=== PATIENT | female | born 1945 | race Caucasian/White ===

== ENCOUNTER 2017-10-10 06:39 | Day surgery (SDC) | payer OTHER ==
[2017-10-09 14:19] VITALS: BMI 42.0
[~2017-10-10 06:39] MED LIST: TOBRAMYCIN/DEXAMETHASONE OPHTH. OINTMENT 1 TUBE TP ONE
[2017-10-10] MEDS ORDERED: MOXIFLOXACIN HCL 0.5% OPHTHALMIC 3 ML BOTTLE ONE (06:52)
[2017-10-10] MEDS ORDERED: TROPICAMIDE 1% OPHTH SOLN 15 ML BOTTLE ONE (06:52)
[2017-10-10] MEDS ORDERED: CYCLOPENTOLATE HCL 1% OPHTH SOLN 2 ML BOTTLE ONE (06:52)
[2017-10-10] MEDS ORDERED: PHENYLEPHRINE 2.5% OPHTH SOLN 15 ML BOTTLE ONE (06:52)
[2017-10-10 07:05] VITALS: PULSE 64; TEMP 97.3
[2017-10-10] MEDS: CYCLOPENTOLATE HCL 1% OPHTH SOLN 2 ML BOTTLE OP SCH ×3 (07:05→07:15)
[2017-10-10] MEDS: MOXIFLOXACIN HCL 0.5% OPHTHALMIC 3 ML BOTTLE OP SCH ×3 (07:05→07:15)
[2017-10-10] MEDS: PHENYLEPHRINE 2.5% OPHTH SOLN 15 ML BOTTLE OP SCH ×3 (07:05→07:15)
[2017-10-10] MEDS: TROPICAMIDE 1% OPHTH SOLN 15 ML BOTTLE OP SCH ×3 (07:05→07:15)
[2017-10-10] MEDS ORDERED: BUPIVACAINE HCL/PF 0.75% 10 ML VIAL ONE (07:51)
[2017-10-10] MEDS ORDERED: LIDOCAINE HCL/PF 2% SDV 5ML VIAL ONE ×2 (07:51→09:12)
[2017-10-10] MEDS ORDERED: EPINEPHrine/PF 1 MG/1 ML (1:1,000) AMPULE ONE (07:51)
[2017-10-10] MEDS ORDERED: TOBRAMYCIN/DEXAMETHASONE OPHTH. OINTMENT 1 TUBE ONE (07:51)
[2017-10-10] MEDS ORDERED: LIDOCAINE HCL/PF 1% SDV 5ML VIAL ONE (07:52)
[2017-10-10] MEDS ORDERED: BSS (NA/CA/MG/K) BALANCED SALT SOLUTION OPHTH SOLN 15 ML BOTTLE ONE (07:52)
[2017-10-10] MEDS ORDERED: TETRACAINE 0.5% OPHTH SOLN 2 ML BOTTLE ONE (07:52)
[2017-10-10] MEDS ORDERED: POVIDONE-IODINE 5% OPHTHALMIC PREP 30 ML SOLUTION ONE (07:53)
--- NOTE | 2017-10-10 07:55 | HP ---
History & Physical Update - History History: No Change - Physical Physical: No Change - Assessment Assessment: No Change (see clearance in chart) - Plan Plan: No Change
[2017-10-10] MEDS ORDERED: MIDAZOLAM HCL 2 MG/2 ML SINGLE DOSE VIAL ONE (08:09)
[2017-10-10] MEDS ORDERED: PROPOFOL 20 ML ONE (08:14)
[2017-10-10] MEDS ORDERED: SUCCINYLCHOLINE CHLORIDE 200 MG/10 ML VIAL ONE (08:15)
[2017-10-10] MEDS ORDERED: TETRACAINE 0.5% OPHTH SOLN 2 ML BOTTLE OD ONE (08:16)
[2017-10-10] MEDS ORDERED: BUPIVACAINE HCL/PF 0.75% 10 ML VIAL RB ONE (08:17)
[2017-10-10] MEDS ORDERED: LIDOCAINE HCL/PF 2% SDV 5ML VIAL INF ONE (08:17)
[2017-10-10] MEDS ORDERED: POVIDONE-IODINE 5% OPHTHALMIC PREP 30 ML SOLUTION OD ONE (08:19)
[2017-10-10] MEDS ORDERED: EPINEPHrine/PF 1 MG/1 ML (1:1,000) AMPULE SQ ONE ×2 (08:20→08:35)
[2017-10-10] MEDS ORDERED: BSS (NA/CA/MG/K) BALANCED SALT SOLUTION OPHTH SOLN 15 ML BOTTLE OD ONE (08:27)
[2017-10-10] MEDS ORDERED: CHONDROITIN SU A/HYALUR SOD 1 KIT IO ONE (08:27)
[2017-10-10] MEDS ORDERED: LIDOCAINE HCL 1% PRESERVATIVE FREE - 30ML VIAL IO ONE (08:27)
[2017-10-10] MEDS ORDERED: ACETYLCHOLINE 1:100 INTRA-OCUL 20 MG/2 ML KIT IO ONE (08:47)
[2017-10-10] MEDS ORDERED: TOBRAMYCIN/DEXAMETHASONE OPHTH. OINTMENT 1 TUBE TP ONE (08:58)
[2017-10-10 10:31] VITALS: BP 144/65
--- NOTE | 2017-10-10 13:41 | OP ---
DATE OF OPERATION: 10/10/2017 SURGEON: Rip Mayes MD PREOPERATIVE DIAGNOSIS: Cataract, right eye. OPERATION: Phacoemulsification and intraocular lens implantation, right eye. POSTOPERATIVE DIAGNOSIS: Cataract, right eye. ANESTHESIA: Local with intravenous sedation. COMPLICATIONS: None. BLOOD LOSS: None. SPECIMEN: None. BRIEF HISTORY: The patient is a 72-year-old woman with a past medical history of hypertension who presented with decreased vision in the right eye down to 2200 due to a 1 to 2+ nuclear sclerotic lens with anterior cortical changes. After the risks, benefits, and alternatives to cataract surgery were discussed with the patient, she consented to surgery for the right eye. DESCRIPTION OF PROCEDURE: The patient was brought to the operating room and administered retrobulbar block after receiving intravenous sedation. She was then prepped and draped in the usual sterile fashion, and an eyelid speculum was inserted in the right eye. A paracentesis was made, and the anterior chamber was inflated with nonpreserved lidocaine. This was followed by injection of Viscoat. A groove was made in the supratemporal clear cornea, which was tunneled forward with a crescent blade. The anterior chamber was entered with a 2.75 keratome. The cystotome was used to make an incision in the center of the capsule, and a continuous curvilinear capsulorrhexis was created. At this point, it was noted that there was significant iris prolapse; however, no constriction of the pupil. The lens was hydrodissected until it was found to rotate freely within the capsular bag. Phacoemulsification was then used to remove the lens in its entirety. Irrigation and aspiration was used to remove residual cortical material. The anterior chamber and capsular bag were reinflated with Provisc, and a 17.5 diopter [id number] AcrySof intraocular lens was injected into the capsular bag using [place] injector. The lens was dialed into place using a Sinskey hook. Irrigation and aspiration was used to remove residual viscoelastic. The wound was stromally hydrated; however, there was continued iris prolapse. Miochol was injected into the eye, and pupil was found to constrict round with irregularity where the iris prolapse had occurred. One 10-0 nylon suture was placed at the wound. The wound was found to be watertight. The eye was at an appropriate pressure, and no iris prolapse was present. The eyelid speculum was removed from the eye, and Tobradex ointment and a patch and shield were placed over the right eye. The patient was transferred to the recovery room in stable condition and will follow up tomorrow. Love [id number]
== END 2017-10-10 11:30 | disposition home or self-care (01) ==
LOC: JASU-SURG 06:39
PROVIDERS: ATTEND Ophthalmology
PROC: 08RJ3JZ Replacement of Right Lens with Synthetic Substitute, Percutaneous Approach (ICD-10-PCS; principal; 2017-10-10 08:00)
DX: H25.11 Age-related nuclear cataract, right eye (principal)

== ENCOUNTER 2017-12-12 06:17 | Day surgery (SDC) | payer OTHER ==
[2017-12-11 09:50] VITALS: BMI 42.0
[2017-12-12] MEDS: CYCLOPENTOLATE HCL 1% OPHTH SOLN 2 ML BOTTLE OP SCH ×3 (06:45→07:05)
[2017-12-12] MEDS: PHENYLEPHRINE 2.5% OPHTH SOLN 15 ML BOTTLE OP SCH ×3 (06:45→07:05)
[2017-12-12] MEDS: TROPICAMIDE 1% OPHTH SOLN 15 ML BOTTLE OP SCH ×3 (06:45→07:05)
[2017-12-12] MEDS: MOXIFLOXACIN HCL 0.5% OPHTHALMIC 3 ML BOTTLE OP SCH ×3 (06:45→07:05)
[2017-12-12 07:03] VITALS: TEMP 97.8
[2017-12-12] MEDS ORDERED: EPINEPHrine/PF 1 MG/1 ML (1:1,000) AMPULE ONE (07:30)
[2017-12-12] MEDS ORDERED: TOBRAMYCIN/DEXAMETHASONE OPHTH. OINTMENT 1 TUBE ONE (07:30)
[2017-12-12] MEDS ORDERED: LIDOCAINE HCL/PF 1% SDV 5ML VIAL ONE (07:31)
[2017-12-12] MEDS ORDERED: BUPIVACAINE HCL/PF 0.75% 10 ML VIAL ONE (07:31)
[2017-12-12] MEDS ORDERED: LIDOCAINE HCL/PF 2% SDV 5ML VIAL ONE ×2 (07:31→08:01)
[2017-12-12] MEDS ORDERED: POVIDONE-IODINE 5% OPHTHALMIC PREP 30 ML SOLUTION ONE (07:31)
[2017-12-12] MEDS ORDERED: TETRACAINE 0.5% OPHTH SOLN 2 ML BOTTLE ONE (07:59)
[2017-12-12] MEDS ORDERED: TETRACAINE 0.5% OPHTH SOLN 2 ML BOTTLE TP ONE (07:59)
[2017-12-12] MEDS ORDERED: PROPOFOL 20 ML ONE (08:01)
[2017-12-12] MEDS ORDERED: BUPIVACAINE HCL/PF 0.75% 10 ML VIAL RB ONE (08:04)
[2017-12-12] MEDS ORDERED: LIDOCAINE HCL/PF 2% SDV 5ML VIAL INF ONE (08:04)
[2017-12-12] MEDS ORDERED: LIDOCAINE HCL 1% PRESERVATIVE FREE - 30ML VIAL IO ONE (08:15)
[2017-12-12] MEDS ORDERED: CHONDROITIN SU A/HYALUR SOD 1 KIT IO ONE (08:15)
[2017-12-12] MEDS ORDERED: ACETYLCHOLINE 1:100 INTRA-OCUL 20 MG/2 ML KIT IO ONE (08:36)
[2017-12-12] MEDS ORDERED: TOBRAMYCIN/DEXAMETHASONE OPHTH. OINTMENT 1 TUBE TP ONE (08:40)
--- NOTE | 2017-12-12 08:52 | HP ---
History & Physical Update - History History: No Change - Physical Physical: No Change - Assessment Assessment: No Change - Plan Plan: No Change
[2017-12-12 11:00] VITALS: BP 128/72; PULSE 62
--- NOTE | 2017-12-12 13:54 | OP ---
DATE OF OPERATION: 12/12/2017 SURGEON: Rip Lindo MD PREOPERATIVE DIAGNOSIS: Cataract, left eye. OPERATION: Phacoemulsification and intraocular lens implantation, left eye. POSTOPERATIVE DIAGNOSIS: Cataract, left eye. ANESTHESIA: Local with intravenous sedation. COMPLICATIONS: None. BLOOD LOSS: None. SPECIMEN: None. BRIEF HISTORY: The patient is a 72-year-old woman with a past medical history of hypertension, who presented with decreased vision in the left eye down to 20/400 due to a 1+ to 2+ nuclear sclerotic lens with anterior cortical changes in the visual axis. After the risks, benefits, and alternatives to cataract surgery were discussed with the patient, she consented to surgery for the left eye. DESCRIPTION OF PROCEDURE: The patient was brought to the operating room and administered retrobulbar block after receiving intravenous sedation. She was then prepped and draped in the usual sterile fashion, and an eyelid speculum was inserted in the left eye. A paracentesis was made, and the anterior chamber was inflated with nonpreserved lidocaine. This was followed by injection of Viscoat. A groove was made in the superotemporal clear cornea which was tunneled forward with a crescent blade. The anterior chamber was entered with a 2.75 keratome. The cystotome was used to make an incision in the center of the capsule, and a continuous curvilinear capsulorrhexis was created. The lens was hydrodissected until it was found to rotate freely within the capsular bag. Phacoemulsification was then used to remove the lens in its entirety. Irrigation and aspiration were used to remove residual cortical material. The anterior chamber and capsular bag were reinflated with Provisc, and a 20.0-diopter SN60WF AcrySof intraocular lens was injected into the capsular bag using the [place] injector. The lens was dialed into place using a Sinskey hook. Irrigation and aspiration were used to remove residual Viscoelastic. The wound was stromally hydrated. However, there appeared to be slight iris prolapse at this time. One 10-0 nylon suture was placed at the wounds. The wound was found to be watertight. Miochol was injected into the eye, and the pupil was found to constrict round without any peaking or any prolapse. The eyelid speculum was removed from the eye, and TobraDex ointment and a patch and shield were placed over the left eye. The patient was transferred to the recovery room in stable condition, will follow up tomorrow. RIP LINDO M.D. [id number]
== END 2017-12-12 10:00 | disposition home or self-care (01) ==
LOC: JASU-SURG 06:17
PROVIDERS: ATTEND Ophthalmology
PROC: 08RK3JZ Replacement of Left Lens with Synthetic Substitute, Percutaneous Approach (ICD-10-PCS; principal; 2017-12-12 08:00)
DX: H25.12 Age-related nuclear cataract, left eye (principal)
CPT/HCPCS: 82962

== ENCOUNTER 2019-11-06 08:59 | Day surgery (SDC) | payer OTHER ==
[2019-11-05 13:28] VITALS: BMI 43.9
[2019-11-06 09:40] VITALS: TEMP 97.7
[2019-11-06 12:13] VITALS: BP 117/36; PULSE 57
--- NOTE | 2019-11-07 15:04 | PATH ---
Surgical Pathology Report Patient Name: ROSA M CRUMP [facility]. Rec. #: [id number] /Age/Gender: 1945 (Age: 74) / F Account: [id number] Location: ASU-ENDOSCOPY Taken: 11/06/2019 Received: 11/06/2019 Reported: 11/07/2019 Physicians: Doe Woods M.D. Specimen(s) Received CECUM, POLYP Clinical History Adenomatous surveillance Postoperative diagnosis: Colon polyp, diverticulosis Final Diagnosis CECUM, POLYP, BIOPSY: TUBULAR ADENOMA. Electronically Signed Gail Reddy M.D. Gross Description Received in formalin, labeled "cecum polyp biopsy" are 2 vyas, irregular portions of soft tissue measuring 0.2 and 0.4 cm. in greatest dimension. The specimens are submitted in toto in one cassette. /11/06/201911/06/2019
== END 2019-11-06 11:20 | disposition home or self-care (01) ==
LOC: JASU-ENDO 08:59
PROVIDERS: ATTEND Internal Medicine Gastroenterology
PROC: 0DBH8ZX Excision of Cecum, Via Natural or Artificial Opening Endoscopic, Diagnostic (ICD-10-PCS; principal; 2019-11-06 09:30)
DX: Z86.010 Personal history of colon polyps (principal); D12.0 Benign neoplasm of cecum; I10 Essential (primary) hypertension; E11.9 Type 2 diabetes mellitus without complications; F41.9 Anxiety disorder, unspecified; K57.30 Diverticulosis of large intestine without perforation or abscess without bleeding; K64.8 Other hemorrhoids

== ENCOUNTER 2020-05-20 14:54 | Inpatient (IN) | payer OTHER ==
[2020-05-20 16:38] LABS: ALBUMIN 4.5 g/dl (3.4-5.0); BILIRUBIN,TOTAL 0.9 mg/dl (0.2-1); CALCIUM 8.6 mg/dl (8.5-10); CREATININE 3.7 mg/dl (0.55-1.3); TOT PROT 7.3 g/dl (6.4-8.2)
[2020-05-20 16:41] LABS: POTASSIUM 5.4 mmol/L (3.5-5.1)
[2020-05-20 16:54] LABS: EPITHELIAL CELLS FEW /hpf
[2020-05-20] MEDS ORDERED: SODIUM CHLORIDE 1,000 ML IV SCH (17:30)
[2020-05-20 17:51] LABS: BASO % 0.7 % (0-2.0); EOS % 3.9 % (0-4.5); HEMATOCRIT 36.5 % (32.4-45.2); HEMOGLOBIN 11.9 GM/dL (10.7-15.3); LYMPH % 27.4 % (8-40); MCH 27.1 pg (25.7-33.7); MCHC 32.5 g/dl (32.0-36.0); MEAN CELL VOLUME 83.4 fl (80-96); MEAN PLT VOLUME 9.3 fl (7.5-11.1); PLATELET COUNT 184 K/MM3 (134-434); RBC 4.38 M/mm3 (3.60-5.2); RDW 15.7 % (11.6-15.6); WHITE BLOOD COUNT 7.3 K/mm3 (4.0-10.0)
--- NOTE | 2020-05-20 18:59 | PDOC ---
Documentation entered by Gail Rhodes SCRIBE, acting as scribe for Bucky Lieberman MD. Bucky Lieberman MD: This documentation has been prepared by the Carmelo myrick Maria, SCRIBE, under my direction and personally reviewed by me in its entirety. I confirm that the documentation accurately reflects all work, treatment, procedures, and medical decision making performed by me. History of Present Illness - General Chief Complaint: Lightheaded Stated Complaint: DIZZINESS AT HOME SLIGHT LY HYPOTENSIVE Time Seen by Provider: 05/20/20 15:20 History Source: Patient - History of Present Illness Initial Comments: 05/20/20 17:52 The patient is a 75 year old female with a significant past medical history of hypertension, NIDDM, gout, mild COPD, dependent edema on the lower extremities, chronic renal failure (GFR range 25-30) who presents to the emergency dep artment with 2 days of generalized weakness, anorexia, and lightheadedness. As per patients daughter, she noticed she had an unsteady gait and checked her BP this morning and it was 90/40 and states her normal range is 150/80. Patient states her diuretics have been increased to 40mg BID for leg swelling. Allergies: Penicillin Social history: Nonsmoker. Denies EtOH use and recreational drug use. Primary Care Physician: Dr. Avila Past History - Medical History Allergies/Adverse Reactions: Allergies Allergy/AdvReac Type Severity Reaction Status Date / Time Penicillins Allergy Intermediate Hives Verified 05/20/20 14:57 Home Medications: Ambulatory Orders Aspirin [Adolph Chewable Aspirin] 81 mg PO DAILY 07/08/14 Carvedilol [Coreg -] 25 mg PO BID 07/08/14 metFORMIN HCL [Metformin HCl] 500 mg PO BID 10/09/17 Allopurinol [Zyloprim -] 100 mg PO DAILY 11/05/19 Losartan/Hydrochlorothiazide [Hyzaar 100-25 Tablet] 1 each PO BID 11/05/19 Spironolactone 25 mg PO DAILY 11/05/19 Furosemide [Lasix] 40 mg PO DAILY 05/20/20 Naproxen [Naprosyn] 500 mg PO PRN 05/20/20 Anemia: No Asthma: No Cancer: No Cardiac Disorders: No CVA: No COPD: No CHF: No Dementia: No Diabetes: Yes (NIDDM) GI Disorders: Yes (DIVERTICULOSIS, COLON ADENOMA) Disorders: Yes (KIDNEY LEVELS SL ELEVATED) HTN: Yes Hypercholesterolemia: No Liver Disease: Yes (NAFLD) Seizures: No Thyroid Disease: No - Surgical History Abdominal Surgery: No Appendectomy: No Cardiac Surgery: No Cholecystectomy: No Lung Surgery: No Neurologic Surgery: No Orthopedic Surgery: Yes (BILAT KNEE REPLACEMENT) - Psycho-Social/Smoking History Smoking Status: No Smoking History: Never smoked Have you smoked in the past 12 months: No Number of Cigarettes Smoked Daily: 0 Review of Systems - Review of Systems Able to Perform ROS?: Yes Comments:: 05/20/20 17:52 CONSTITUTIONAL: generalized weakness. Absent: fever, chills, diaphoresis loss of appetite HEENT: Absent: rhinorrhea, nasal congestion, throat pain, throat swelling, difficulty swallowing, mouth swelling, ear pain, eye pain, visual Changes CARDIOVASCULAR: +lightheadedness Absent: chest pain, syncope, palpitations peripheral edema RESPIRATORY: Absent: cough, shortness of breath, dyspnea with exertion, orthopnea, wheezing, stridor, hemoptysis GASTROINTESTINAL: Absent: abdominal pain, abdominal distension, nausea, vomiting, diarrhea, constipation, melena, hematochezia GENITOURINARY: Absent: dysuria, frequency, urgency, hesitancy, hematuria, flank pain, genital pain MUSCULOSKELETAL: Absent: myalgia, arthralgia, joint swelling SKIN: Absent: rash, itching, pallor HEMATOLOGIC/IMMUNOLOGIC: Absent: easy bleeding, easy bruising, lymphadenopathy, frequent infections ENDOCRINE: Absent: unexplained weight gain, unexplained weight loss, heat intolerance, cold intolerance NEUROLOGIC: Absent: headache, focal weakness or paresthesias, seizure, mental status changes , bladder or bowel incontinence PSYCHIATRIC: Absent: anxiety, depression, suicidal or homicidal ideation, hallucinations. *Physical Exam - Physical Exam 05/20/20 18:02 GENERAL: Moderately obese Well developed, well nourished. Awake and alert. No acute distress. HEENT: Normocephalic, atraumatic. PERRLA, EOMI. No conjunctival pallor. Sclera are non- icteric. Moist mucous membranes. Oropharynx is clear. NECK: Supple. Full ROM. No JVD. Carotid pulses 2+ and symmetric, without bruits. No thyromegaly. No lymphadenopathy. CARDIOVASCULAR:irregular rate, systolic ejection murmur Regular rhythm. No rubs, or gallops. Distal pulses are 2+ and symmetric. PULMONARY: No evidence of respiratory distress. Lungs clear to auscultation bilaterally. No wheezing, rales or rhonchi. ABDOMINAL: Soft. Non-tender. Non-distended. No rebound or guarding. No organomegaly. Normoactive bowel sounds. MUSCULOSKELETAL Normal range of motion at all joints. No bony deformities or tenderness. No CVA tenderness. EXTREMITIES: No cyanosis. No clubbing. No calf tenderness. SKIN: Warm and dry. Normal capillary refill. No rashes. No jaundice. NEUROLOGICAL: generalized weakness Alert, awake, appropriate. Cranial nerves 2-12 intact. No deficits to light touch and temperature in face, upper extremities and lower extremities. No motor deficits in the in face, upper extremities and lower extremities. Normoreflexic in the upper and lower extremities. Normal speech. Toes are down-going bilaterally. No vertigo PSYCHIATRIC: Cooperative. Good eye contact. Appropriate mood and affect. ED Treatment Course - LABORATORY CBC & Chemistry Diagram: 05/22/20 05:35 05/22/20 05:35 Medical Decision Making - Medical Decision Making 05/20/20 17:34 75-year-old female presents with generalized weakness, anorexia, lightheadedness for 2 to 3 days. Noted to be unsteady on her feet by her daughter this morning, who is a nurse, checks her blood pressure and it was 90/40 when it is usually 150/80. Her diuretics have been increased to 40 mg twice daily of furosemide for approximately 1 week to improve dependent edema in the lower extremities. She has chronic renal failure with a GFR of 25-30. Her primary physician, Dr. Avila, was contacted. Labs from 1 month ago were notable for BUN of 45 and creatinine of 1.7. Today her BUN and creatinine are all 120 and 3.7. She also takes Naprosyn frequently for various aches and pains. Her acute renal insufficiency is most likely due to prerenal azotemia from the furosemide, superimposed on chronic renal failure that may be due to hypertension, use of nonsteroidal anti-inflammatory agents, gout, or combination of these factors. Plan is to admit for gentle rehydration, monitor renal function, and obtain nephrology consultation. There is no sign of acute neurological or cardiac daniel nt. Discharge - Discharge Information Problems reviewed: Yes Clinical Impression/Diagnosis: Acute on chronic renal insufficiency - Admission Yes - Follow up/Referral - Patient Discharge Instructions - Post Discharge Activity
[2020-05-20 19:47] VITALS: BMI 43.7
[2020-05-21] MEDS: HEPARIN NA (PORCINE) 5,000 UNITS/ML 1ML VIAL SQ SCH ×3 (06:36→21:41)
[2020-05-21] MEDS ORDERED: INSULIN SLIDING SCALE (NOVOLOG) 1 VIAL SQ SCH (07:00)
--- NOTE | 2020-05-21 08:18 | HP ---
CHIEF COMPLAINT: Weakness, anorexia PCP: Dr. Avila HISTORY OF PRESENT ILLNESS: 75 year-old female with a PMH significant for HTN, Type II NIDDM, chronic kidney disease, diverticulitis, and chronic lower extremity lymphedema, and gout. Presented to ED for evaluation of 2 days of generalized weakness, anorexia, and lightheadedness. As per patients daughter, she noticed she had an unsteady gait and checked her BP this morning and it was 90/40 and states her normal range is 150/80. Patient states her lasix dose was increased to 40mg BID for leg swelling. ER course was notable for: (1) Na 133, K 5.4, HCO3 20, BUN 120, Cr 3.7 (2) Pyuria Recent Travel: No PAST MEDICAL HISTORY: Hypertension Type II NIDDM Chronic kidney disease Diverticulitis Chronic lower extremity lymphedema Gout PAST SURGICAL HISTORY: Bilateral knee replacements Bilateral cataracts Social History: Smoking: never Alcohol: no Drugs: no Family history: reviewed, non-contributory Allergies Penicillins Allergy (Intermediate, Verified 05/20/20 14:57) Hives HOME MEDICATIONS: Home Medications Medication Instructions Recorded Aspirin [Adolph Chewable Aspirin] 81 mg PO DAILY 07/08/14 Carvedilol [Coreg -] 25 mg PO BID 07/08/14 metFORMIN HCL [Metformin HCl] 500 mg PO BID 10/09/17 Allopurinol [Zyloprim -] 100 mg PO DAILY 11/05/19 Losartan/Hydrochlorothiazide 1 each PO BID 11/05/19 [Hyzaar 100-25 Tablet] Spironolactone 25 mg PO DAILY 11/05/19 Furosemide [Lasix] 40 mg PO DAILY 05/20/20 Naproxen [Naprosyn] 500 mg PO PRN 05/20/20 REVIEW OF SYSTEMS CONSTITUTIONAL: +weakness, lightheadedness, anorexia Absent: fever, chills, diaphoresis HEENT: Absent: rhinorrhea, nasal congestion, throat pain, throat swelling, difficulty swallowing, mouth swelling, ear pain, eye pain, visual changes CARDIOVASCULAR: Absent: chest pain, syncope, palpitations, irregular heart rate, lightheadedness, peripheral edema RESPIRATORY: Absent: cough, shortness of breath, dyspnea with exertion, orthopnea, wheezing, stridor, hemoptysis GASTROINTESTINAL: Absent: abdominal pain, abdominal distension, nausea, vomiting, diarrhea, constipation, melena, hematochezia GENITOURINARY: Absent: dysuria, frequency, urgency, hesitancy, hematuria, flank pain, genital pain MUSCULOSKELETAL: Absent: myalgia, arthralgia, joint swelling, back pain, neck pain SKIN: Absent: rash, itching, pallor HEMATOLOGIC/IMMUNOLOGIC: Absent: easy bleeding, easy bruising, lymphadenopathy, frequent infections ENDOCRINE: Absent: unexplained weight gain, unexplained weight loss, heat intolerance, cold intolerance NEUROLOGIC: Absent: headache, focal weakness or paresthesias, dizziness, unsteady gait, seizure, mental status changes, bladder or bowel incontinence PSYCHIATRIC: Absent: anxiety, depression, suicidal or homicidal ideation, hallucinations. PHYSICAL EXAMINATION Vital Signs - 24 hr 05/20/20 05/20/20 05/20/20 14:56 17:42 19:27 Temperature 97.7 F 97.8 F Pulse Rate 64 60 Respiratory 18 17 Rate Blood Pressure 105/58 L 106/78 Blood Pressure 123/48 L [Right Arm] O2 Sat by Pulse 95 97 Oximetry (%) 05/20/20 05/21/20 05/21/20 22:41 02:00 03:37 Temperature 98.4 F 97.7 F 97.8 F Pulse Rate 62 65 63 Respiratory 18 18 18 Rate Blood Pressure 114/42 L 124/40 L 121/49 L Blood Pressure [Right Arm] O2 Sat by Pulse 94 L 96 Oximetry (%) 05/21/20 06:26 Temperature Pulse Rate Respiratory Rate Blood Pressure Blood Pressure [Right Arm] O2 Sat by Pulse 98 Oximetry (%) GENERAL: Awake, alert, and fully oriented, in no acute distress. HEAD: Normal with no signs of trauma. EYES: Pupils equal, round and reactive to light, extraocular movements intact, sclera anicteric, conjunctiva clear. No lid lag. LUNGS: Breath sounds equal, clear to auscultation bilaterally. No wheezes, and no crackles. No accessory muscle use. HEART: Regular rate and rhythm, normal S1 and S2 ABDOMEN: Soft, nontender, not distended UPPER EXTREMITIES: 2+ pulses, warm, well-perfused. No cyanosis. No clubbing. No peripheral edema. LOWER EXTREMITIES: 2+ pulses, warm, well-perfused. No calf tenderness. No peripheral edema. NEUROLOGICAL: Cranial nerves II-XII intact. Normal speech. Laboratory Results - last 24 hr 05/20/20 05/20/20 05/20/20 15:35 15:35 15:50 WBC RBC Hgb Hct MCV MCH MCHC RDW Plt Count MPV Absolute Neuts (auto) Neutrophils % Lymphocytes % Monocytes % Eosinophils % Basophils % Nucleated RBC % Sodium 133 L Potassium 5.4 H Chloride 101 Carbon Dioxide 20 L Anion Gap 12 BUN 120.0 H* Creatinine 3.7 H Est GFR (CKD-EPI)AfAm 13.12 Est GFR (CKD-EPI)NonAf 11.32 POC Glucometer Random Glucose 106 Uric Acid Calcium 8.6 Total Bilirubin 0.9 AST 17 ALT 20 Alkaline Phosphatase 70 Creatine Kinase 392 H Creatine Kinase Index 1.2 CK-MB (CK-2) 4.8 H Troponin I < 0.03 Total Protein 7.3 Albumin 4.5 Urine Color Yellow Urine Appearance Slightly Urine pH 5.0 Urine Protein Negative Urine Glucose (UA) Negative Urine Ketones Negative Urine Blood Trace-lysed Urine Nitrite Negative Urine Bilirubin Negative Urine Urobilinogen 0.2 Ur Leukocyte Esterase 3+ Urine RBC 0-2 Urine WBC 10-20 Ur Transition Epith Cell Few Urine Bacteria Few 05/20/20 05/21/20 05/21/20 16:10 06:32 07:01 WBC 7.3 RBC 4.38 Hgb 11.9 Hct 36.5 MCV 83.4 MCH 27.1 MCHC 32.5 RDW 15.7 H Plt Count 184 MPV 9.3 D Absolute Neuts (auto) 4.5 Neutrophils % 61.0 Lymphocytes % 27.4 Monocytes % 7.0 Eosinophils % 3.9 Basophils % 0.7 Nucleated RBC % 0 Sodium Potassium Chloride Carbon Dioxide Anion Gap BUN Creatinine Est GFR (CKD-EPI)AfAm Est GFR (CKD-EPI)NonAf POC Glucometer 116 Random Glucose Uric Acid 10.1 H Calcium Total Bilirubin AST ALT Alkaline Phosphatase Creatine Kinase Creatine Kinase Index CK-MB (CK-2) Troponin I Total Protein Albumin Urine Color Urine Appearance Urine pH Urine Protein Urine Glucose (UA) Urine Ketones Urine Blood Urine Nitrite Urine Bilirubin Urine Urobilinogen Ur Leukocyte Esterase Urine RBC Urine WBC Ur Transition Epith Cell Urine Bacteria ASSESSMENT/PLAN: 75 year-old female with a PMH significant for HTN, Type II NIDDM, chronic kidney disease, diverticulitis, chronic lower extremity lymphedema, and gout. Admitted for acute on chronic kidney disease and hypotension. Acute on chronic kidney disease --BUN/Cr 45/1.7 on 05/12, now 120/3.7; multifactorial, likely secondary to overdiuresis, ARB, daily NSAID use --hold home lasix, losartan/HCTZ, spironolactone, and metformin --repeat labs pending; urine studies pending --US renal: unremarkable --IV fluids --strict I&Os --daily weights --renal following Hypotension --DBPs running <50 --continue carvedilol with hold parameters SBP<100, DBP <60 Chronic lower extremity edema Hyperuricemia Gout --no acute issues --continue allopurinol Hyperkalemia --IV fluids Pyuria --afebrile, no leukocytosis, observe off antibiotics pending culture Type II NIDDM --hold metformin --Novolog sliding scale coverage Diverticulitis --stable FEN Fluids: NS@84mL/hr Electrolytes: replete as indicated Nutrition: renal, diabetic diet DVT prophylaxis: subq heparin Physical therapy Dispo: continues to require inpatient care. Full code. Visit type - Emergency Visit Emergency Visit: Yes ED Registration Date: 05/20/20 Care time: The patient presented to the Emergency Department on the above date and was hospitalized for further evaluation of their emergent condition. - New Patient This patient is new to me today: Yes Date on this admission: 05/21/20 - Critical Care Critical Care patient: No
[2020-05-21] MEDS: ALLOPURINOL 100 MG TABLET (FP) PO SCH (09:31)
[2020-05-21] MEDS: ASPIRIN 81 MG CHEWABLE TABLETS PO SCH (09:31)
[2020-05-21] MEDS ORDERED: CARVEDILOL 25 MG TABLET (FP) PO SCH (10:00)
--- NOTE | 2020-05-21 11:18 | CON.NEP ---
Consult Consult Specialty:: Nephrology Referred by:: BRYAN Salas Reason for Consultation:: Acute kidney injury - History of Present Illness Chief Complaint: Weakness and anorexia History of Present Illness: This is a 75 year old woman with history of hypertension, DM not on insulin, COPD, gout, CHF, CKD stage 4 (baseline Cr ~1.7) who presented to the emergency department with weakness and anorexia and found to have acute on chronic renal insufficiency. Pt seen and examined at the bedside. She does not speak much [place] was not able to provide history. Daughter called on the phone who gave the history. She was recently put on a larger dose of diurtic to treat worsening lower extremity edema. She was also using naproxen daily at home. Denies any recent contrast exposure. No skin rash. No recent antibiotic use. She denies any flank pain. No dysuria or frequency. - History Source History Provided By: Patient Limitations to Obtaining History: No Limitations - Past Medical History Cardio/Vascular: Yes: HTN ...LMP Comment: 75 YEARS OLD ...: No Endocrine: Yes: Diabetes Mellitus - Alcohol/Substance Use Hx Alcohol Use: Yes (OCCAS) - Smoking History Smoking history: Never smoked Have you smoked in the past 12 months: No Aproximately how many cigarettes per day: 0 Home Medications - Allergies Allergies/Adverse Reactions: Allergies Allergy/AdvReac Type Severity Reaction Status Date / Time Penicillins Allergy Intermediate Hives Verified 05/20/20 14:57 - Home Medications Home Medications: Ambulatory Orders Aspirin [Adolph Chewable Aspirin] 81 mg PO DAILY 07/08/14 Carvedilol [Coreg -] 25 mg PO BID 07/08/14 metFORMIN HCL [Metformin HCl] 500 mg PO BID 10/09/17 Allopurinol [Zyloprim -] 100 mg PO DAILY 11/05/19 Losartan/Hydrochlorothiazide [Hyzaar 100-25 Tablet] 1 each PO BID 11/05/19 Spironolactone 25 mg PO DAILY 11/05/19 Furosemide [Lasix] 40 mg PO DAILY 05/20/20 Naproxen [Naprosyn] 500 mg PO PRN 05/20/20 Family Medical History Family History: Unremarkable Review of Systems Unable to obtain ROS, reason: language barrier Nephrology Consult - Height Height: 5 ft 2 in - Weight Weight: 108.437 kg - BMI Body Mass Index (BMI): 43.7 - Lab Results CBC,BMP: CBC, BMP 05/20/20 16:10 05/20/20 15:35 Anion Gap: Anion Gap Anion Gap 12 MMOL/L (8-16) 05/20/20 15:35 - Imaging Chest X-ray: Report Reviewed, Image Reviewed - Physical Examination Vital Signs: Vital Signs Temperature 97.9 F 05/21/20 09:22 Pulse Rate 67 05/21/20 09:22 Respiratory Rate 18 05/21/20 09:22 Blood Pressure 120/48 L 05/21/20 09:22 O2 Sat by Pulse Oximetry (%) 95 05/21/20 09:22 Constitutional: Yes: Well Nourished, No Distress, Calm HENT: Yes: Atraumatic Neck: Yes: Supple Cardiovascular: Yes: Regular Rate and Rhythm Respiratory: Yes: Regular, CTA Bilaterally. No: Rales, Rhonchi, SOB Gastrointestinal: Yes: Normal Bowel Sounds, Soft. No: Tenderness Renal/: No: Bladder Distention, CVA Tenderness - Left, CVA Tenderness - Right Extremities: No: Cold, Cool, Cyanosis Edema: No Neurological: Yes: Alert, Oriented Assessment/Plan 75 year old woman with history of hypertension, DM not on insulin, COPD, gout, CHF, CKD stage 4 (baseline Cr ~1.7) who presented to the emergency department with weakness and anorexia and found to have acute on chronic renal insuffici ency. 1. Acute kidney injury likely due to volume depletion in setting of diuretics +/- ATN from NSAIDs 2. Mild hyperkalemia 3. Hyperurecemia 4. Hypertension 5. Hx of CHF w/o evidence of acute exacerbation 6. DM 7. COPD Todays labs pending, added BMP to morning labs Depite BUN > 100 no emergent indication for MANAGER MASS expect pt to recover with IVF continue moderate IVF hydration with 84cc of NS per hour check urine studies for FeNa, FeUrea, UPCR, Eosinophils Check renal US r/o obstruction BP currently low/normal hold ARB/VICENTA/Diuretics continue coreg for now will need to obtain recent ECHO study if done oral intake as tolerated monitor volume status/respiratory status closely Thank you Alcon Bergeron DO
[2020-05-21] MEDS ORDERED: SODIUM CHLORIDE 1,000 ML IV SCH (11:19)
[2020-05-21 11:27] LABS: ALBUMIN 3.9 g/dl (3.4-5.0); BILIRUBIN,TOTAL 0.7 mg/dl (0.2-1); CALCIUM 7.9 mg/dl (8.5-10); MAGNESIUM 2.6 mg/dL (1.8-2.4); PHOSPHOROUS 6.8 mg/dl (2.5-4.9); POTASSIUM 5.1 mmol/L (3.5-5.1); TOT PROT 6.3 g/dl (6.4-8.2)
[2020-05-21] MEDS: INSULIN (NOVOLOG) ASPART 100 UNITS/ML 10ML VIAL SQ SCH ×3 (11:35→21:46)
[2020-05-21 13:05] LABS: BASO % 0.7 % (0-2.0); EOS % 3.6 % (0-4.5); HEMATOCRIT 34.7 % (32.4-45.2); HEMOGLOBIN 11.2 GM/dL (10.7-15.3); LYMPH % 28.7 % (8-40); MCH 26.7 pg (25.7-33.7); MCHC 32.2 g/dl (32.0-36.0); MEAN CELL VOLUME 82.8 fl (80-96); MEAN PLT VOLUME 8.9 fl (7.5-11.1); MONO % 7.7 % (3.8-10.2); NEUT % 59.3 % (42.8-82.8); PLATELET COUNT 169 K/MM3 (134-434); RBC 4.19 M/mm3 (3.60-5.2); WHITE BLOOD COUNT 5.7 K/mm3 (4.0-10.0)
--- NOTE | 2020-05-21 14:08 | EKG ---
Test Reason : Blood Pressure : / mmHG Vent. Rate : 059 BPM Atrial Rate : 059 BPM P-R Int : 180 ms QRS Dur : 160 ms QT Int : 460 ms P-R-T Axes : 002 -28 026 degrees QTc Int : 455 ms SINUS BRADYCARDIA LEFT BUNDLE BRANCH BLOCK ABNORMAL ECG WHEN COMPARED WITH ECG OF 17-MAR-2015 18:19, NO SIGNIFICANT CHANGE WAS FOUND Confirmed by CECILIA GAMEZ MD ([id number]) on 05/21/2020 2:07:54 PM Referred By: MD CONNER Confirmed By:CECILIA GAMEZ MD
[2020-05-21 15:06] LABS: CREATININE, URINE RANDOM 58.6 mg/dL
[2020-05-21] MEDS: CARVEDILOL 25 MG TABLET (FP) PO SCH (21:41)
--- NOTE | 2020-05-22 05:36 | PN ---
Physical Exam: SUBJECTIVE: Patient seen and examined at bedside. Used [employer] lactation consultant. Reports mild nausea. Weakness has improved. Denies dysuria, f requency, hematuria or other signs of UTI. OBJECTIVE: Vital Signs Period Temp Pulse Resp BP Sys/Rose Pulse Ox Last 24 Hr 97.8 F-98.0 F 64-71 18-19 120-139/48-57 94-98 GENERAL: Awake, alert, and fully oriented, in no acute distress. LUNGS: Breath sounds equal, clear to auscultation bilaterally. No wheezes, and no crackles. No accessory muscle use. HEART: Regular rate and rhythm, normal S1 and S2 ABDOMEN: Soft, nontender, not distended UPPER EXTREMITIES: 2+ pulses, warm, well-perfused. No cyanosis. No clubbing. No peripheral edema. LOWER EXTREMITIES: 2+ pulses, warm, well-perfused. No calf tenderness. No peripheral edema. NEUROLOGICAL: Cranial nerves II-XII intact. Normal speech. CBCD WBC 6.0 K/mm3 (4.0-10.8) 05/22/20 05:35 RBC 4.11 M/mm3 (3.60-5.2) 05/22/20 05:35 Hgb 10.9 GM/dl (10.7-15.3) 05/22/20 05:35 Hct 32.8 % (32.4-45.2) 05/22/20 05:35 MCV 80.0 fl (80-96) 05/22/20 05:35 MCHC 33.1 g/dl (32.0-36.0) 05/22/20 05:35 RDW 14.9 % (11.6-15.6) 05/22/20 05:35 Plt Count 165 K/MM3 (134-434) 05/22/20 05:35 MPV 8.6 fl (7.5-11.1) 05/22/20 05:35 CMP Sodium 139 mmol/L (136-145) 05/22/20 05:35 Potassium 4.7 mmol/L (3.5-5.1) 05/22/20 05:35 Chloride 108 mmol/L (98-107) H 05/22/20 05:35 Carbon Dioxide 21 mmol/L (21-32) 05/22/20 05:35 Anion Gap 10 MMOL/L (8-16) 05/22/20 05:35 BUN 81.0 mg/dl (7-18) H D 05/22/20 05:35 Creatinine 1.8 mg/dl (0.55-1.3) H 05/22/20 05:35 Calcium 8.8 mg/dl (8.5-10) 05/22/20 05:35 Total Bilirubin 0.7 mg/dl (0.2-1) 05/22/20 05:35 AST 17 U/L (15-37) 05/22/20 05:35 ALT 16 U/L (13-61) 05/22/20 05:35 Alkaline Phosphatase 63 U/L (45-117) 05/22/20 05:35 Total Protein 6.3 g/dl (6.4-8.2) L 05/22/20 05:35 Albumin 3.9 g/dl (3.4-5.0) 05/22/20 05:35 Active Medications Generic Name Dose Route Start Last Admin Trade Name Shyam PRN Reason Stop Dose Admin Allopurinol 100 mg 05/21/20 10:00 05/21/20 09:31 Zyloprim - PO 100 mg DAILY ANA Administration Aspirin 81 mg 05/21/20 10:00 05/21/20 09:31 Asa - PO 81 mg DAILY ANA Administration Carvedilol 25 mg 05/21/20 22:00 05/21/20 21:41 Coreg - PO 25 mg BID ANA Administration Heparin Sodium (Porcine) 5,000 unit 05/21/20 06:00 05/21/20 21:41 Heparin - SQ 5,000 unit TID ANA Administration Sodium Chloride 1,000 mls @ 83 mls/hr 05/21/20 11:19 05/21/20 11:35 Normal Saline - IV 83 mls/hr ASDIR ANA Administration Insulin Aspart 0 units 05/21/20 11:00 05/21/20 21:46 Novolog Vial SQ Not Given ACHS [facility] Protocol ASSESSMENT/PLAN 75 year-old female with a PMH significant for HTN, Type II NIDDM, chronic kidney disease, diverticulitis, chronic lower extremity lymphedema, and gout. Admitted for acute on chronic kidney disease and hypotension. Acute on chronic kidney diseas --Cr 3.7 on admission, now 1.7 with IV fluids;; FeUrea suggests prerenal disease --continue to hold home lasix, losartan/HCTZ, spironolactone, and metformin --US renal: unremarkable --strict I&Os --daily weights --renal following Hypotension --DBPs running <50 --continue carvedilol with hold parameters SBP<100, DBP <60 Chronic lower extremity edema --stable Hyperuricemia Gout --no acute issues --continue allopurinol Hyperkalemia --resolved after IV fluids Pyuria LFGNB in urine --afebrile, no leukocytosis, asymptomatic; no antibiotics to be given Type II NIDDM --hold metformin --Novolog sliding scale coverage Diverticulitis --stable FEN Fluids: NS@84mL/hr Electrolytes: replete as indicated Nutrition: renal, diabetic diet DVT prophylaxis: subq heparin Physical therapy Dispo: continues to require inpatient care. Check renal function in morning. Likely discharge. Hold lasix, losartan/HCTZ, sprinolactone, and all NSAIDS at time of discharge and until labs are repeated next week. Patient states she has an appointment with Dr. Avila on May 26. Full code. Visit type - Emergency Visit Emergency Visit: Yes ED Registration Date: 05/20/20 Care time: The patient presented to the Emergency Department on the above date and was hospitalized for further evaluation of their emergent condition. - New Patient This patient is new to me today: No - Critical Care Critical Care patient: No - Discharge Referral Referred to [facility] Med P.C.: No
[2020-05-22] MEDS: HEPARIN NA (PORCINE) 5,000 UNITS/ML 1ML VIAL SQ SCH ×3 (06:39→21:15)
[2020-05-22] MEDS: INSULIN (NOVOLOG) ASPART 100 UNITS/ML 10ML VIAL SQ SCH ×4 (06:40→21:15)
[2020-05-22 08:23] LABS: BASO % 0.5 % (0-2.0); EOS % 3.6 % (0-4.5); HEMATOCRIT 32.8 % (32.4-45.2); HEMOGLOBIN 10.9 GM/dl (10.7-15.3); LYMPH % 30.6 % (8-40); MCH 26.4 pg (25.7-33.7); MCHC 33.1 g/dl (32.0-36.0); MEAN PLT VOLUME 8.6 fl (7.5-11.1); MONO % 7.8 % (3.8-10.2); NEUT % 57.5 % (42.8-82.8); PLATELET COUNT 165 K/MM3 (134-434); RBC 4.11 M/mm3 (3.60-5.2); RDW 14.9 % (11.6-15.6)
[2020-05-22 08:30] LABS: ALBUMIN 3.9 g/dl (3.4-5.0); BILIRUBIN,TOTAL 0.7 mg/dl (0.2-1); CALCIUM 8.8 mg/dl (8.5-10); CREATININE 1.8 mg/dl (0.55-1.3); MAGNESIUM 2.5 mg/dL (1.8-2.4); PHOSPHOROUS 4.7 mg/dl (2.5-4.9); POTASSIUM 4.7 mmol/L (3.5-5.1); TOT PROT 6.3 g/dl (6.4-8.2)
[2020-05-22] MEDS: ASPIRIN 81 MG CHEWABLE TABLETS PO SCH (09:45)
[2020-05-22] MEDS: CARVEDILOL 25 MG TABLET (FP) PO SCH ×2 (09:45→22:19)
[2020-05-22] MEDS: ALLOPURINOL 100 MG TABLET (FP) PO SCH (09:45)
[2020-05-22] MEDS ORDERED: SODIUM CHLORIDE 1,000 ML IV SCH (11:13)
--- NOTE | 2020-05-22 11:21 | PN ---
Progress Note, Physician Chief Complaint: Weakness History of Present Illness: Seen and examined at the bedside awake and alert offers no acute complaints no sob, cp, fever, chills, N/V/D making urine on IVF - Current Medication List Current Medications: Active Medications Allopurinol (Zyloprim -) 100 mg PO DAILY [facility] Last Admin: 05/21/20 09:31 Dose: 100 mg Documented by: Aspirin (Asa -) 81 mg PO DAILY [facility] Last Admin: 05/21/20 09:31 Dose: 81 mg Documented by: Carvedilol (Coreg -) 25 mg PO BID [facility] Last Admin: 05/21/20 21:41 Dose: 25 mg Documented by: Heparin Sodium (Porcine) (Heparin -) 5,000 unit SQ TID [facility] Last Admin: 05/22/20 06:39 Dose: 5,000 unit Documented by: Sodium Chloride (Normal Saline -) 1,000 mls @ 60 mls/hr IV ASDIR [facility] Stop: 05/23/20 06:00 Insulin Aspart (Novolog Vial) 0 units SQ ACHS [facility]; Protocol Last Admin: 05/22/20 06:40 Dose: Not Given Documented by: - Objective Vital Signs: Vital Signs Temperature 98.2 F 05/22/20 06:00 Pulse Rate 63 05/22/20 06:00 Respiratory Rate 18 05/22/20 06:00 Blood Pressure 145/87 05/22/20 06:00 O2 Sat by Pulse Oximetry (%) 95 05/22/20 06:00 Constitutional: Yes: No Distress, Calm HENT: Yes: Atraumatic Neck: Yes: Supple Cardiovascular: Yes: Regular Rate and Rhythm Respiratory: Yes: Regular Gastrointestinal: Yes: Soft Extremities: No: Cold, Cool, Cyanosis Edema: No Neurological: Yes: Alert, Oriented Labs: CBC, BMP 05/22/20 05:35 05/22/20 05:35 Assessment/Plan 75 year old woman with history of hypertension, DM not on insulin, COPD, gout, CHF, CKD stage 4 (baseline Cr ~1.7) who presented to the emergency department with weakness and anorexia and found to have acute on chronic renal insufficiency. 1. Acute kidney injury likely due to volume depletion in setting of diuretics +/- ATN from NSAIDs 2. Mild hyperkalemia 3. Hyperurecemia 4. Hypertension 5. Hx of CHF w/o evidence of acute exacerbation 6. DM 7. COPD Renal function improving with IVF no uremia, acidosis or volume overload Continue gentle IVF until this evening. check urine studies for FeNa, FeUrea, UPCR, Eosinophils Renal US showed no pathology Would check labs again in AM if renal function improved/stable can plan on discharge in AM Would hold Lasix/Aldactone/Losartan/HCTZ for now Will leave a script to check labs Mid-week next week Our office contact information provided to make a follow up appointment. Pts daughter advised to avoid all NSAIDs Case discussed with daughter and FORM BUILDER HELPER. Thank you for allowing us to take part in the care of this patient. Alcon Bergeron DO
[2020-05-23] MEDS: HEPARIN NA (PORCINE) 5,000 UNITS/ML 1ML VIAL SQ SCH ×2 (06:11→13:55)
[2020-05-23] MEDS: INSULIN (NOVOLOG) ASPART 100 UNITS/ML 10ML VIAL SQ SCH ×2 (06:11→11:08)
[2020-05-23] MEDS: ASPIRIN 81 MG CHEWABLE TABLETS PO SCH (09:38)
[2020-05-23] MEDS: ALLOPURINOL 100 MG TABLET (FP) PO SCH (09:39)
[2020-05-23] MEDS: CARVEDILOL 25 MG TABLET (FP) PO SCH (09:39)
[2020-05-23 10:38] LABS: BLOOD UREA NITROGEN 54.6 mg/dL (7-18); CALCIUM 8.6 mg/dL (8.5-10.1); CREATININE 1.7 mg/dL (0.55-1.3); POTASSIUM 4.5 mmol/L (3.5-5.1)
--- NOTE | 2020-05-23 11:45 | DS ---
Physical Exam: SUBJECTIVE: Patient seen and examined at bedside,all systems reviewed reported. OBJECTIVE: Vital Signs Period Temp Pulse Resp BP Sys/Rose Pulse Ox Last 24 Hr 97.6 F-98.5 F 61-65 16-19 126-149/50-71 96-99 PHYSICAL EXAM GENERAL: The patient is awake, alert, and fully oriented, in no acute distress. HEAD: Normal with no signs of trauma. EYES: PERRL, extraocular movements intact, sclera anicteric, conjunctiva clear. ENT: Ears normal, nares patent, oropharynx clear without exudates, moist mucous membranes. NECK: Trachea midline, full range of motion, supple. LUNGS: Breath sounds equal, clear to auscultation bilaterally, no wheezes, no crackles, no accessory muscle use. HEART: Regular rate and rhythm, S1, S2 without murmur, rub or gallop. ABDOMEN: Soft, nontender, nondistended, normoactive bowel sounds, no guarding, no rebound, no hepatosplenomegaly, no masses. EXTREMITIES: 2+ pulses, warm, well-perfused, no edema. NEUROLOGICAL: Cranial nerves II through XII grossly intact. Normal speech, gait not observed. PSYCH: Normal mood, normal affect. SKIN: Warm, dry, normal turgor, no rashes or lesions noted. LABS Laboratory Results - last 24 hr 05/22/20 05/23/20 05/23/20 21:13 06:00 06:09 Sodium 143 Potassium 4.5 Chloride 111 H Carbon Dioxide 22 Anion Gap 10 BUN 54.6 H Creatinine 1.7 H Est GFR (CKD-EPI)AfAm 33.60 Est GFR (CKD-EPI)NonAf 28.99 POC Glucometer 106 103 Random Glucose 105 Calcium 8.6 05/23/20 11:06 Sodium Potassium Chloride Carbon Dioxide Anion Gap BUN Creatinine Est GFR (CKD-EPI)AfAm Est GFR (CKD-EPI)NonAf POC Glucometer 114 Random Glucose Calcium HOSPITAL COURSE: Date of Admission:05/20/20 Date of Discharge: 05/23/20 This is a 75 year-old female with a PMH significant for HTN, Type II NIDDM, chronic kidney disease, stage 4 (baseline Cr ~1.7) diverticulitis, chronic lower extremity lymphedema, and gout. Admitted for acute on chronic kidney disease and hypotension. *Acute on chronic kidney disease- improved -Cr 3.7 on admission, now 1.7 with IV fluids;; FeUrea suggests prerenal disease -US renal: unremarkable - Renal input appreciated -continue to hold home lasix, losartan/HCTZ, spironolactone, and metformin *Hypotension- BP improved -continue carvedilol with hold parameters SBP<100, DBP <60 - will hold off on lasix, losartan/HCTZ, spironolactone for now and out pt followup *Chronic lower extremity edema-stable - holding off Lasix *Hyperuricemia/Gout -no acute issues -continue allopurinol *Hyperkalemia -resolved after IV fluids *Pyuria -LFGNB in urine -afebrile, no leukocytosis, asymptomatic; no antibiotics to be given *Type II NIDDM - metformin due to --Novolog sliding scale coverage * Hx of Diverticulitis -asymptomatic Minutes to complete discharge: 40 Discharge Summary Problems reviewed: Yes Reason For Visit: DIZZINESS AT HOME SLIGHT LY HYPOTENSIVE Current Active Problems Acute on chronic renal insufficiency (Acute) Condition: Good - Instructions Diet, Activity, Other Instructions: Hold Lasix/Aldactone/Losartan/HCTZ Advised to avoid all NSAIDs. Recheck Renal functions in 3-4 days Referrals: Rojelio Avila MD [Primary Care Provider] - (May 26 as scheduled ) Disposition: HOME - Home Medications Comprehensive Discharge Medication List: Ambulatory Orders Aspirin [Adolph Chewable Aspirin] 81 mg PO DAILY 07/08/14 Carvedilol [Coreg -] 25 mg PO BID 07/08/14 Allopurinol [Zyloprim -] 100 mg PO DAILY 11/05/19 This patient is new to me today: Yes Date on this admission: 05/23/20 Emergency Visit: Yes ED Registration Date: 05/20/20 Care time: The patient presented to the Emergency Department on the above date and was hospitalized for further evaluation of their emergent condition. Critical Care patient: No - Discharge Referral Referred to [facility] Med P.C.: No
[2020-05-23 14:45] VITALS: BP 142/66; PULSE 72; TEMP 98.8
== END 2020-05-23 15:05 | disposition home or self-care (01) | DRG 683 ==
LOC: FER 14:54 → FM/S 17:57
PROVIDERS: ADMIT Internal Medicine; ATTEND Nurse Practitioner Family
DX: N17.9 Acute kidney failure, unspecified (principal); K57.92 Diverticulitis of intestine, part unspecified, without perforation or abscess without bleeding; Z68.41 Body mass index [BMI] 40.0-44.9, adult; I95.9 Hypotension, unspecified; E66.8 Other obesity; E11.22 Type 2 diabetes mellitus with diabetic chronic kidney disease; E11.65 Type 2 diabetes mellitus with hyperglycemia; I12.9 Hypertensive chronic kidney disease with stage 1 through stage 4 chronic kidney disease, or unspecified chronic kidney disease; E87.5 Hyperkalemia; I89.0 Lymphedema, not elsewhere classified; E79.0 Hyperuricemia without signs of inflammatory arthritis and tophaceous disease; R82.81 Pyuria; J44.9 Chronic obstructive pulmonary disease, unspecified; N18.4 Chronic kidney disease, stage 4 (severe); Z96.653 Presence of artificial knee joint, bilateral; I50.9 Heart failure, unspecified
CPT/HCPCS: 36415; 70450-TC; 71045-TC-FY; 76775-TC; 80048; 80053; 81003; 81015; 82550; 82553; 82565; 82962; 83735; 84100; 84156; 84300; 84484; 84540; 84550; 85025; 87086; 87186; 87205; 93005; 97116-GP; 97161-GP; 99285-25; J1644; U0003

== ENCOUNTER 2020-12-23 20:48 | Emergency (ER) | payer OTHER ==
[2020-12-23] MEDS: CALCIUM GLUCONATE 10% - 1,000 MG/10 ML VIAL IVPUSH ONE ×3 (21:10→22:09)
[2020-12-23] MEDS ORDERED: ASPIRIN 81 MG CHEWABLE TABLETS PO ONE (21:10)
[2020-12-23] MEDS ORDERED: CALCIUM GLUCONATE 10% - 1,000 MG/10 ML VIAL ONE (21:11)
[2020-12-23 21:15] VITALS: BP 116/46; PULSE 45; BMI 43.9
[2020-12-23 21:25] LABS: BASO % 0.6 % (0-2.0); EOS % 2.7 % (0-4.5); HEMATOCRIT 32.2 % (32.4-45.2); HEMOGLOBIN 10.5 GM/dL (10.7-15.3); LYMPH % 17.7 % (8-40); MCH 27.9 pg (25.7-33.7); MCHC 32.5 g/dl (32.0-36.0); MEAN CELL VOLUME 85.8 fl (80-96); MEAN PLT VOLUME 8.4 fl (7.5-11.1); PLATELET COUNT 189 K/MM3 (134-434); RBC 3.75 M/mm3 (3.60-5.2); RDW 17.1 % (11.6-15.6); WHITE BLOOD COUNT 10.4 K/mm3 (4.0-10.0)
[2020-12-23 21:35] LABS: INR 0.99 (0.83-1.09); PROTHROMBIN TIME (PATIENT) 12.2 SEC (9.7-13.0)
[2020-12-23 21:38] LABS: ACTIVATED PTT 29.4 SECONDS (25.2-36.5)
[2020-12-23 21:48] LABS: CHLORIDE 106 mmol/L (98-107); MAGNESIUM 2.5 mg/dL (1.8-2.4); SODIUM 137 mmol/L (136-145)
[2020-12-23 21:49] LABS: ANION GAP 9 MMOL/L (8-16); CALCIUM 8.8 mg/dL (8.5-10.1); CO2 23 mmol/L (21-32)
[2020-12-23 21:50] LABS: GLUCOSE,RANDOM 162 mg/dL (74-106)
[2020-12-23 21:53] LABS: CREATININE 2.4 mg/dL (0.55-1.3); SGOT/AST 24 U/L (15-37); SGPT/ALT 29 U/L (13-61)
[2020-12-23 21:54] LABS: BILIRUBIN,TOTAL 0.3 mg/dL (0.2-1); TOT PROT 7.2 g/dl (6.4-8.2)
[2020-12-23 21:55] LABS: ALK PHOS 90 U/L (45-117)
[2020-12-23 21:58] LABS: N-TERMINAL BNP 250.6 pg/ml (5-450)
[2020-12-23] MEDS ORDERED: CALCIUM GLUCONATE 10% - 1,000 MG/10 ML VIAL IVPUSH ONE (22:01)
== END 2020-12-23 22:15 | disposition short-term general hospital (02) ==
LOC: JER 20:48
PROC: 3E033GC Introduction of Other Therapeutic Substance into Peripheral Vein, Percutaneous Approach (ICD-10-PCS; principal; 2020-12-23)
DX: R55 Syncope and collapse (principal); R00.1 Bradycardia, unspecified
CPT/HCPCS: 36415; 71045-TC-FY; 80053; 83735; 83880; 84443; 84484; 85025; 85610; 85730; 93005; 93010; 99291

== ENCOUNTER 2022-02-05 12:47 | Emergency (ER) | payer OTHER ==
[2022-02-05 13:04] VITALS: BMI 42.5
[2022-02-05] MEDS ORDERED: ACETAMINOPHEN 325 MG TABLET (FP) PO ONE (13:04)
[2022-02-05] MEDS ORDERED: LIDOCAINE 5% TOPICAL PATCH TP ONE (13:04)
[2022-02-05] MEDS ORDERED: LIDOCAINE 5% TOPICAL PATCH ONE (13:10)
[2022-02-05 14:28] LABS: BASO % 0.8 % (0-2.0); EOS % 2.1 % (0-4.5); HEMATOCRIT 33.5 % (32.4-45.2); HEMOGLOBIN 11.2 GM/dL (10.7-15.3); LYMPH % 23.1 % (8-40); MCH 27.6 pg (25.7-33.7); MCHC 33.5 g/dl (32.0-36.0); MEAN CELL VOLUME 82.3 fl (80-96); MONO % 8.5 % (3.8-10.2); NEUT % 65.5 % (42.8-82.8); PLATELET COUNT 187 10^3/uL (134-434); RBC 4.06 M/mm3 (3.60-5.2); RDW 15.3 % (11.6-15.6); WHITE BLOOD COUNT 6.9 K/mm3 (4.0-10.0)
[2022-02-05 14:29] LABS: EPITHELIAL CELLS FEW /hpf
[2022-02-05 17:30] LABS: ALBUMIN 3.9 g/dl (3.4-5.0); BILIRUBIN,TOTAL 0.4 mg/dL (0.2-1); BLOOD UREA NITROGEN 48.2 mg/dL (7-18); CALCIUM 9.2 mg/dL (8.5-10.1); CREATININE 1.8 mg/dL (0.55-1.3); TOT PROT 7.1 g/dl (6.4-8.2)
[2022-02-05 17:46] VITALS: BP 135/89; PULSE 82; TEMP 98.5
[2022-02-05] MEDS ORDERED: LIDOCAINE PATCH REMOVAL MC SCH (22:00)
== END 2022-02-05 17:47 | disposition home or self-care (01) ==
LOC: FER 12:47
DX: N30.00 Acute cystitis without hematuria (principal)
CPT/HCPCS: 36415; 74176-TC; 80053; 81003; 81015; 85025; 87086; 99284-25